=== PATIENT | female | born 1950 | race African-American/Black ===

== ENCOUNTER → 2020-07-26 | Outpatient (CLI) | payer OTHER ==
[~2020-07-26] MED LIST: ASPIR 8181 M1 PO; COLACE100 MG PO; COREG CR80 MG PO; COREG25 MG PO; IBUPROFEN 800800 M1 PO; IRON325 PO; MAXZIDE 75-501 EACH PO; MAXZIDE-25 MG1 EACH PO; MOBIC15 MG PO; NORCO 5-325 TA1 EACH PO; SENNA PO; VITAMINC500 PO; XARELTO10 MG PO; ZANTAC 150MG T150 MG PO; ZOCOR40 MG PO
== END ==
LOC: LAB 08:40
PROVIDERS: ATTEND Pediatrics
DX: U07.1 COVID-19 (principal)

== ENCOUNTER → 2021-10-10 | Outpatient (CLI) | payer OTHER | LOC: RAD 15:23 | PROVIDERS: ATTEND Internal Medicine | DX: Z12.31 Encounter for screening mammogram for malignant neoplasm of breast (principal); N64.89 Other specified disorders of breast ==